=== PATIENT | male | born 1975 | race Caucasian/White ===

== ENCOUNTER 2016-07-25 17:56 | Emergency (ER) | payer MEDICAID ==
[~2016-07-25] VITALS: Ht 175.3 cm; Wt 82.3 kg
[2016-07-25 18:01] VITALS: BP 142/93
[2016-07-25] MEDS ORDERED: CEFTRIAXONE 250 MG IM ONE (18:30)
[2016-07-25] MEDS ORDERED: AZITHROMYCIN 500 MG TABLET PO ONE (18:30)
[2016-07-25] MEDS ORDERED: AZITHROMYCIN 500 MG TABLET ONE (18:39)
[2016-07-25] MEDS ORDERED: CEFTRIAXONE 250 MG ONE (18:39)
== END 2016-07-25 19:55 | disposition home or self-care (01) ==
LOC: ED 19:49
DX: R30.0 Dysuria (principal); Z20.2 Contact with and (suspected) exposure to infections with a predominantly sexual mode of transmission; A74.9 Chlamydial infection, unspecified
CPT/HCPCS: 81003; 87491; 87591; 96372; 99284; J0696